=== PATIENT | male | born 1945 | race African-American/Black ===

== ENCOUNTER 2016-06-16 16:32 | Emergency (ER) | payer OTHER, MEDICARE ==
[2016-06-16] MEDS ORDERED: ASPIRIN 81 MG TABLET, CHEWABLE PO ONE (18:06)
--- NOTE | 2016-06-16 18:08 | ER Document Report ---
ED Medical Screen (RME) - General Stated Complaint: PASSED OUT Notes: She states he passed out last night, but does not remember event. says patient was in a cold sweat and felt cold. Patient has a history of hypertension and is diabetic. He states he is having some chest pain and shortness of breath. Denies nausea or vomiting. Patient complains of decreased appetite. I have greeted and performed a rapid initial assessment of this patient. A comprehensive ED assessment and evaluation of the patient, analysis of test results and completion of the medical decision making process will be conducted by additional ED providers. TRAVEL OUTSIDE OF THE [place] IN LAST 30 DAYS: No - Related Data Allergies/Adverse Reactions: No Known Allergies Allergy (Verified 06/16/16 18:04) Past Medical History - Past Medical History Cardiac Medical History: Reports: Hx Hypercholesterolemia, Hx Hypertension Pulmonary Medical History: Reports: Hx Asthma Endocrine Medical History: Reports: Hx Diabetes Mellitus Type 2 GI Medical History: Reports: Hx Gastroesophageal Reflux Disease - Immunizations Hx Diphtheria, Pertussis, Tetanus Vaccination: Yes - 2009 Physical Exam - Vital signs Vitals: Temp Pulse Resp BP Pulse Ox 98.5 F 66 20 164/71 H 97 06/16/16 17:23 06/16/16 17:23 06/16/16 17:23 06/16/16 17:23 06/16/16 17:23 - Cardiovascular Rhythm: Regular Heart sounds: Normal auscultation Course - Vital Signs Vital signs: Temp Pulse Resp BP Pulse Ox 98.5 F 66 20 164/71 H 97 06/16/16 17:23 06/16/16 17:23 06/16/16 17:23 06/16/16 17:23 06/16/16 17:23
[2016-06-16 18:32] LABS: ABSOLUTE EOSINOPHILS # (AUTO) 0.1 10^3/uL (0.0-0.6); ABSOLUTE LYMPHOCYTES (AUTO) 1.1 10^3/uL (0.5-4.7); ABSOLUTE MONOCYTES (AUTO) 0.4 10^3/uL (0.1-1.4); BASOPHILS % (AUTO) 0.6 % (0-2); EOSINOPHILS % (AUTO) 1.8 % (0-6); HEMATOCRIT 44.9 % (37.9-51.0); HEMOGLOBIN 15.3 g/dL (13.5-17.0); LYMPHOCYTES % (AUTO) 23.4 % (13-45); MEAN CORPUSCULAR HEMOGLOBIN 33.9 pg (27.0-33.4); MEAN CORPUSCULAR HGB CONC 34.1 g/dL (32.0-36.0); MEAN CORPUSCULAR VOLUME 100 fl (80-97); RED BLOOD COUNT 4.52 10^6/uL (4.35-5.55); RED CELL DISTRIBUTION WIDTH 13.6 % (11.5-14.0); SEGMENTED NEUTROPHILS % (AUTO) 65.2 % (42-78); WHITE BLOOD COUNT 4.6 10^3/uL (4.0-10.5)
[2016-06-16 18:39] LABS: PROTHROMBIN TIME 13.5 SEC (11.4-15.4)
[2016-06-16 18:54] LABS: ALANINE AMINOTRANSFERASE 50 U/L (21-72); ALBUMIN 4.8 g/dL (3.5-5.0); ALKALINE PHOSPHATASE 56 U/L (38-126); ANION GAP 14 (5-19); ASPARTATE AMINO TRANSFERASE 35 U/L (17-59); BILIRUBIN,DIRECT 0.3 mg/dL (0.0-0.4); BLOOD UREA NITROGEN 11 mg/dL (7-20); CARBON DIOXIDE 28 mmol/L (22-30); CHLORIDE 102 mmol/L (98-107); CREATINE KINASE 118 U/L (55-170); CREATININE RESULT 1.01 mg/dL (0.52-1.25); GLUCOSE 110 mg/dL (75-110); POTASSIUM 3.9 mmol/L (3.6-5.0)
[2016-06-16 19:05] LABS: CREATINE KINASE MB 0.98 ng/mL (<4.55); TROPONIN I < 0.012 ng/mL
--- NOTE | 2016-06-16 20:24 | EKG REPORT ---
SEVERITY:- ABNORMAL ECG - SINUS RHYTHM FIRST DEGREE AV BLOCK PROBABLE LEFT ATRIAL ABNORMALITY PROBABLE LVH WITH SECONDARY REPOL ABNRM ANTERIOR Q WAVES, POSSIBLY DUE TO LVH : Confirmed by: Dora Phoenix 16-Jun-2016 20:24:11
--- NOTE | 2016-06-17 00:02 | ER Document Report ---
ED Syncope and Near Syncope - General Chief Complaint: Passed Out Prior to Arrival Stated Complaint: PASSED OUT Time Seen by Provider: 06/16/16 18:04 Mode of Arrival: Ambulatory Information source: Patient TRAVEL OUTSIDE OF THE [place] IN LAST 30 DAYS: No - HPI Patient complains to provider of: Fainting Episode witnessed (by whom): Yes - spouse Single episoded occurred: 24 hours prior to my evaluation Multiple episodes (how many): 1 Symptoms prior to episode: None Position/Activity at time of episode: Sitting Quality of pain: No pain Context: Became unresponsive, Confused after event, Incontinent of urine Duration of LOC (min): 10 minutes Injury location: None Current symptoms: None/feels back to normal Similar symptoms previously: No Recently seen / treated by doctor: No Notes: Patient is a 71-year-old male who presents to the emergency room for complaints of a syncopal episode with possible seizure that occurred yesterday evening at around 10 PM, reports he was sitting in a chair watching TV when he became sweaty and passed out, he was unresponsive for approximately 10 minutes, he urinated on himself during this time and was confused for approximately 20 minutes after the episode, denies seeing any seizure activity during the episode, no history of similar symptoms previously, no seizure history, patient denies any injury prior to or during the episode as he was sitting in chair in the living room, at time of my evaluation he reports feeling 100% normal and has no complaints - Related Data Allergies/Adverse Reactions: No Known Allergies Allergy (Verified 06/16/16 18:04) Past Medical History - General Information source: Patient - Social History Smoking Status: Unknown if Ever Smoked Chew tobacco use (# tins/day): No Frequency of alcohol use: None Drug Abuse: None Family History: Reviewed & Not Pertinent Patient has suicidal ideation: No Patient has homicidal ideation: No - Past Medical History Cardiac Medical History: Reports: Hx Hypercholesterolemia, Hx Hypertension Pulmonary Medical History: Reports: Hx Asthma Endocrine Medical History: Reports: Hx Diabetes Mellitus Type 2 Renal/ Medical History: Denies: Hx Peritoneal Dialysis GI Medical History: Reports: Hx Gastroesophageal Reflux Disease - Immunizations Hx Diphtheria, Pertussis, Tetanus Vaccination: Yes - 2009 Review of Systems - Review of Systems Constitutional: No symptoms reported EENT: No symptoms reported Cardiovascular: Syncope Respiratory: No symptoms reported Gastrointestinal: No symptoms reported Genitourinary: No symptoms reported Male Genitourinary: No symptoms reported Musculoskeletal: No symptoms reported Skin: No symptoms reported Hematologic/Lymphatic: No symptoms reported Neurological/Psychological: No symptoms reported -: Yes All other systems reviewed and negative Physical Exam - Vital signs Vitals: Temp Pulse Resp BP Pulse Ox 98.5 F 66 20 164/71 H 97 06/16/16 17:23 06/16/16 17:23 06/16/16 17:23 06/16/16 17:23 06/16/16 17:23 Interpretation: Normal - General General appearance: Appears well, Alert - HEENT Head: Normocephalic, Atraumatic Eyes: Normal Pupils: PERRL - Respiratory Respiratory status: No respiratory distress Chest status: Nontender Breath sounds: Normal Chest palpation: Normal - Cardiovascular Rhythm: Regular Heart sounds: Normal auscultation Murmur: No - Abdominal Inspection: Normal Distension: No distension Bowel sounds: Normal Tenderness: Nontender Organomegaly: No organomegaly - Back Back: Normal, Nontender - Extremities General upper extremity: Normal inspection, Nontender, Normal color, Normal ROM , Normal temperature General lower extremity: Normal inspection, Nontender, Normal color, Normal ROM , Normal temperature, Normal weight bearing. No: Billie's sign - Neurological Neuro grossly intact: Yes Cognition: Normal Orientation: AAOx4 [place] Coma Scale Eye Opening: Spontaneous [place] Coma Scale Verbal: Oriented [place] Coma Scale Motor: Obeys Commands [place] Coma Scale Total: 15 Speech: Normal Motor strength normal: LUE, RUE, LLE, RLE Sensory: Normal - Psychological Associated symptoms: Normal affect, Normal mood - Skin Skin Temperature: Warm Skin Moisture: Dry Skin Color: Normal Course - Re-evaluation Re-evalutation: 06/17/16 02:53 Lab and imaging findings were discussed with patient at bedside which are relatively unremarkable, EKG is unchanged from previous EKG, I discussed my concerns with possible seizure activity that may of been cause of patient's unresponsive episode yesterday evening, I advised him to follow-up with a neurologist within the next 1-2 days, refrain from driving or other activity that may be dangerous if he is in fact having seizures or even syncopal episodes , he was advised to follow-up with his primary care provider as well, or return if symptoms worsen, patient and spouse at bedside acknowledge understanding and agreement with this plan - Vital Signs Vital signs: Temp Pulse Resp BP Pulse Ox 98.5 F 63 16 159/76 H 96 06/17/16 00:14 06/17/16 00:14 06/17/16 00:14 06/17/16 00:14 06/17/16 00:14 - Laboratory Result Diagrams: 06/16/16 18:20 06/16/16 18:20 Laboratory results interpreted by me: 06/16/16 18:20 MCV 100 H MCH 33.9 H - Diagnostic Test Radiology reviewed: Image reviewed, Reports reviewed - EKG Interpretation by Me EKG shows normal: Sinus rhythm Rate: Normal Rhythm: NSR Voltage: Consistant with LVH Heart block present: 1st Degree When compared to previous EKG there are: No significant change Discharge - Discharge Clinical Impression: Seizure Syncopal episodes Qualifiers: Syncope type: unspecified Qualified Code(s): R55 - Syncope and collapse Condition: Stable Disposition: HOME, SELF-CARE Instructions: Syncopal Episode ([facility]), Seizure, Known Epileptic ([facility]), Neurologist Additional Instructions: Follow up with your primary care provider and neurologist in one to 2 days. Return to the emergency room immediately if symptoms worsen or any additional concerns. Referrals: APRIL CRUZ MD [Primary Care Provider] - Follow up as needed
[2016-06-17 00:16] VITALS: BP 159/76
== END 2016-06-17 00:16 | disposition home or self-care (01) ==
LOC: ER 16:32
DX: R56.9 Unspecified convulsions (principal); R55 Syncope and collapse
CPT/HCPCS: 36415; 71010; 80053; 82550; 82553; 84484; 85025; 85610; 93005; 93010; 99284

== ENCOUNTER 2017-02-25 22:31 | Emergency (ER) | payer OTHER, MEDICARE ==
[2017-02-25] MEDS ORDERED: NORMAL SALINE 1000 ML 1,000 ML IV ONE (22:43)
--- NOTE | 2017-02-25 22:45 | ER Document Report ---
ED General - General Chief Complaint: Syncope Stated Complaint: POSSIBLE SYNCOPAL EPISODE Time Seen by Provider: 02/25/17 22:37 Notes: Patient is a 72-year-old male that comes emergency department by EMS for chief complaint of syncope. Reportedly patient passed out twice at home, witnessed, stated that he "was out of it for about 10 minutes" and appeared to have shaking movements. No history of seizures. Patient states he had 2 beers today. He denies headache, chest pain, abdominal pain, focal numbness or weakness, he states he just feels weak. He states he has had diarrhea for a week, it has slowed down now to about 1-2 episodes a day, nonbloody, no fevers, states he has had a decreased appetite as well. Past medical history of hypertension, type 2 diabetes, daily aspirin, takes no other blood thinners. EMS gave 500 cc bolus, blood pressure elevated from 60 systolic to 120s systolic. TRAVEL OUTSIDE OF THE [place] IN LAST 30 DAYS: No - Related Data Allergies/Adverse Reactions: No Known Allergies Allergy (Verified 06/16/16 18:04) Past Medical History - General Information source: Patient - Social History Smoking Status: Never Smoker Frequency of alcohol use: Occasional Drug Abuse: None Lives with: Family Family History: Reviewed & Not Pertinent - Past Medical History Cardiac Medical History: Reports: Hx Hypercholesterolemia, Hx Hypertension Pulmonary Medical History: Reports: Hx Asthma Endocrine Medical History: Reports: Hx Diabetes Mellitus Type 2 Renal/ Medical History: Denies: Hx Peritoneal Dialysis GI Medical History: Reports: Hx Gastroesophageal Reflux Disease - Immunizations Hx Diphtheria, Pertussis, Tetanus Vaccination: Yes - 2009 Review of Systems - Review of Systems Constitutional: No symptoms reported EENT: No symptoms reported Cardiovascular: See HPI Respiratory: No symptoms reported Gastrointestinal: No symptoms reported Genitourinary: No symptoms reported Male Genitourinary: No symptoms reported Musculoskeletal: No symptoms reported Skin: No symptoms reported Hematologic/Lymphatic: No symptoms reported Neurological/Psychological: See HPI Physical Exam - Vital signs Vitals: BP Pulse Ox 130/78 H 94 02/25/17 22:39 02/25/17 22:39 Interpretation: Normal - General General appearance: Appears well, Alert In distress: None - Smiling, alert, well-appearing - HEENT Head: Normocephalic, Atraumatic. No: Abrasions, Ecchymosis, Open wounds, [place] 's eyes, Tenderness Eyes: Normal Pupils: PERRL Mouth/Lips: Normal Mucous membranes: Normal Pharynx: Normal Neck: Normal - Respiratory Respiratory status: No respiratory distress Chest status: Nontender Breath sounds: Normal Chest palpation: Normal - Cardiovascular Rhythm: Regular Heart sounds: Normal auscultation Murmur: No - Abdominal Inspection: Normal Distension: No distension Bowel sounds: Normal Tenderness: Nontender. No: Tender Organomegaly: No organomegaly - Back Back: Normal, Nontender - Extremities General upper extremity: Normal inspection, Nontender, Normal color, Normal ROM , Normal temperature General lower extremity: Normal inspection, Nontender, Normal color, Normal ROM , Normal temperature, Normal weight bearing. No: Billie's sign - Neurological Neuro grossly intact: Yes Cognition: Normal Orientation: AAOx4 [place] Coma Scale Eye Opening: Spontaneous [place] Coma Scale Verbal: Oriented [place] Coma Scale Motor: Obeys Commands [place] Coma Scale Total: 15 Speech: Normal Cranial nerves: Normal Cerebellar coordination: Normal Motor strength normal: LUE, RUE, LLE, RLE Additional motor exam normals: Equal yard caller Sensory: Normal - Psychological Associated symptoms: Normal affect, Normal mood - Skin Skin Temperature: Warm Skin Moisture: Dry Skin Color: Normal Course - Re-evaluation Re-evalutation: EKG sinus rhythm, mild T-wave inversions laterally, slightly elevated ID interval, no significant change from prior. Chest x-ray, CAT scans unremarkable. CBC, chemistry, cardiac enzymes unremarkable. Urinalysis unremarkable. Urine drug screen shows marijuana only. Cycled troponin does not show elevation. Patient has not had any chest pain. Patient denies any bloody stools. Discussed patient with Dr. Buitrago. Patient and now tell me that patient has had syncopal episodes going on for months now. They state that they have been referred to cardiology and have one coming up soon. They are requesting to leave. Discussed results and possibilities with patient. Discussed this with family as well. Patient is to follow-up closely with cardiology. Discussed return precautions including head injury, vomiting, chest pain, shortness of breath, dizziness. Patient and family state understanding and agreement. - Vital Signs Vital signs: Temp Pulse Resp BP Pulse Ox 12 142/65 H 96 02/26/17 01:56 02/26/17 01:56 02/26/17 01:56 - Laboratory Result Diagrams: 02/25/17 22:50 02/25/17 22:50 Laboratory results interpreted by me: 02/25/17 02/25/17 22:50 22:50 RBC 3.61 L Hgb 12.4 L Hct 36.0 L MCV 100 H MCH 34.3 H Est GFR (Non-Af Amer) 57 L Glucose 123 H Discharge - Discharge Clinical Impression: Syncopal episodes Qualifiers: Syncope type: unspecified Qualified Code(s): R55 - Syncope and collapse Condition: Stable Disposition: HOME, SELF-CARE Additional Instructions: Your workup does not show any acute abnormalities. Please follow-up with cardiology as planned for syncopal episodes. Return to the emergency department for any concerning symptoms including fever, chest pain, difficulty breathing, or any other concerning symptoms. Referrals: APRIL CRUZ MD [Primary Care Provider] - Follow up as needed
[2017-02-25 23:08] LABS: ABSOLUTE EOSINOPHILS # (AUTO) 0.1 10^3/uL (0.0-0.6); ABSOLUTE LYMPHOCYTES (AUTO) 1.3 10^3/uL (0.5-4.7); ABSOLUTE MONOCYTES (AUTO) 0.4 10^3/uL (0.1-1.4); ABSOLUTE NEUT (AUTO) 2.4 10^3/uL (1.7-8.2); BASOPHILS % (AUTO) 0.7 % (0-2); EOSINOPHILS % (AUTO) 1.6 % (0-6); HEMOGLOBIN 12.4 g/dL (13.5-17.0); HGB HCT DIFFERENCE 1.2; LYMPHOCYTES % (AUTO) 30.7 % (13-45); MEAN CORPUSCULAR HEMOGLOBIN 34.3 pg (27.0-33.4); MEAN CORPUSCULAR HGB CONC 34.5 g/dL (32.0-36.0); MEAN CORPUSCULAR VOLUME 100 fl (80-97); MONOCYTES % (AUTO) 9.3 % (3-13); RED BLOOD COUNT 3.61 10^6/uL (4.35-5.55); RED CELL DISTRIBUTION WIDTH 13.1 % (11.5-14.0); SEGMENTED NEUTROPHILS % (AUTO) 57.7 % (42-78); WHITE BLOOD COUNT 4.1 10^3/uL (4.0-10.5)
--- NOTE | 2017-02-25 23:31 | RADIOLOGY REPORT (SQ) ---
EXAM DESCRIPTION: CHEST SINGLE VIEW CLINICAL HISTORY: 72 years, Male, hypotension, syncope COMPARISON: 06/16/2016. NUMBER OF VIEWS: 1. TECHNIQUE: Frontal. LIMITATIONS: None. FINDINGS: Small obscuration-fusion right costophrenic angle. Small atelectasis or scar right midlung field. Normal cardiac silhouette size. Atherosclerosis. Small deformity of the right seventh and eighth posterior ribs. Stable. IMPRESSION: No acute cardiopulmonary findings. 2010 [employer]- All Rights Reserved
--- NOTE | 2017-02-25 23:39 | RADIOLOGY REPORT (SQ) ---
EXAM DESCRIPTION: CT CERVICAL SPINE WITHOUT CLINICAL HISTORY: 72 years Male, syncope, ETOH COMPARISON: None. TECHNIQUE: This exam was performed according to our departmental dose-optimization program, which includes automated exposure control, adjustment of the mA and/or kV according to patient size and/or use of iterative reconstruction technique. FINDINGS: No acute findings. No evidence of fracture or subluxation. Normal alignment and curvature. Mild disc desiccation and spondylosis between the C3 and C6 levels. Mild/moderate bilateral C5, C6, and C7 foraminal stenoses, right more than left. Ectatic thoracic aorta up to 3.5 cm in diameter partially imaged. 3.9 cm bulla of the left lung apex. IMPRESSION: No acute findings.
--- NOTE | 2017-02-25 23:42 | RADIOLOGY REPORT (SQ) ---
EXAM DESCRIPTION: CT HEAD WITHOUT CLINICAL HISTORY: 72 years Male, syncope, ETOH, seizure like symptoms COMPARISON: None. TECHNIQUE: This exam was performed according to our departmental dose-optimization program, which includes automated exposure control, adjustment of the mA and/or kV according to patient size and/or use of iterative reconstruction technique. FINDINGS: Mild volume loss, no evidence of mass, mass effect, or midline shift, mild white matter microangiopathy, no hemorrhage or infarct. Atherosclerosis. Wire fixation and partially edentulous maxilla. Else, unremarkable extra-axial structures. IMPRESSION: No acute findings.
[2017-02-25 23:51] LABS: ALANINE AMINOTRANSFERASE 26 U/L (21-72); ALBUMIN 4.1 g/dL (3.5-5.0); ALKALINE PHOSPHATASE 43 U/L (38-126); ANION GAP 12 (5-19); ASPARTATE AMINO TRANSFERASE 18 U/L (17-59); BILIRUBIN,DIRECT 0.4 mg/dL (0.0-0.4); BILIRUBIN,TOTAL 0.5 mg/dL (0.2-1.3); BLOOD UREA NITROGEN 13 mg/dL (7-20); CALCIUM 9.6 mg/dL (8.4-10.2); CARBON DIOXIDE 26 mmol/L (22-30); CHLORIDE 101 mmol/L (98-107); CREATINE KINASE 94 U/L (55-170); CREATININE RESULT 1.24 mg/dL (0.52-1.25); GLUCOSE 123 mg/dL (75-110); MAGNESIUM 1.9 mg/dL (1.6-2.3); POTASSIUM 3.7 mmol/L (3.6-5.0); TOTAL PROTEIN 6.6 g/dL (6.3-8.2)
[2017-02-25 23:57] LABS: ALCOHOL < 10 mg/dL (NONE DETECTED)
[2017-02-26 00:54] LABS: APPEARANCE,URINE CLEAR; BILIRUBIN,URINE NEGATIVE (NEGATIVE); GLUCOSE, URINE NEGATIVE (NEGATIVE); KETONES,URINE NEGATIVE (NEGATIVE); LEUKOCYTE ESTERASE,URINE NEGATIVE (NEGATIVE); NITRITE,URINE NEGATIVE (NEGATIVE); PROTEIN,URINE NEGATIVE (NEGATIVE); URINE SPECIFIC GRAVITY 1.017; UROBILINOGEN,URINE NEGATIVE mg/dL (<2.0)
[2017-02-26 01:03] LABS: URINE BARBITURATES SCREEN NEGATIVE; URINE METHADONE SCREEN NEGATIVE; URINE OPIATES LOW NEGATIVE; URINE PHENCYCLIDINE SCREEN NEGATIVE
[2017-02-26 01:27] VITALS: BP 142/65
--- NOTE | 2017-02-26 04:45 | EKG REPORT ---
SEVERITY:- ABNORMAL ECG - SINUS RHYTHM FIRST DEGREE AV BLOCK CONSIDER ANTEROSEPTAL INFARCT NONSPECIFIC T ABNORMALITIES, LATERAL LEADS : Confirmed by: Dora Phoenix 26-Feb-2017 04:15:43
== END 2017-02-26 02:00 | disposition home or self-care (01) ==
LOC: ER 22:31
DX: R55 Syncope and collapse (principal); R53.1 Weakness; R19.7 Diarrhea, unspecified
CPT/HCPCS: 93005; 99285; 96360; 36415; 80307 ×2; 82550; 83735; 85025; 80053; 81001; 84484; 71010; 70450; 72125; 93010; J7030

== ENCOUNTER 2017-05-04 20:12 | Emergency (ER) | payer OTHER, MEDICARE ==
[2017-05-04] MEDS ORDERED: NORMAL SALINE 1000 ML 1,000 ML IV ONE (20:23)
[2017-05-04 20:42] LABS: ABSOLUTE EOSINOPHILS # (AUTO) 0.1 10^3/uL (0.0-0.6); ABSOLUTE LYMPHOCYTES (AUTO) 0.9 10^3/uL (0.5-4.7); ABSOLUTE MONOCYTES (AUTO) 0.3 10^3/uL (0.1-1.4); ABSOLUTE NEUT (AUTO) 1.8 10^3/uL (1.7-8.2); BASOPHILS % (AUTO) 0.7 % (0-2); HEMATOCRIT 40.2 % (37.9-51.0); HEMOGLOBIN 13.5 g/dL (13.5-17.0); MEAN CORPUSCULAR HEMOGLOBIN 33.1 pg (27.0-33.4); MEAN CORPUSCULAR HGB CONC 33.5 g/dL (32.0-36.0); MEAN CORPUSCULAR VOLUME 99 fl (80-97); MONOCYTES % (AUTO) 9.1 % (3-13); PLATELET COUNT 173 10^3/uL (150-450); RED BLOOD COUNT 4.06 10^6/uL (4.35-5.55); RED CELL DISTRIBUTION WIDTH 12.8 % (11.5-14.0); SEGMENTED NEUTROPHILS % (AUTO) 58.2 % (42-78); TOTAL CELLS COUNTED % (AUTO) 100 %
--- NOTE | 2017-05-04 20:49 | RADIOLOGY REPORT (SQ) ---
EXAM DESCRIPTION: CHEST SINGLE VIEW COMPLETED DATE/TIME: 05/04/2017 8:37 pm REASON FOR STUDY: syncope COMPARISON: 02/25/2017 EXAM PARAMETERS: NUMBER OF VIEWS: One view. TECHNIQUE: Single frontal radiographic view of the chest acquired. RADIATION DOSE: NA LIMITATIONS: None. FINDINGS: LUNGS AND PLEURA: No opacities, masses or pneumothorax. No pleural effusion. Chronic scar ring in the right lung. MEDIASTINUM AND HILAR STRUCTURES: No masses. Contour normal. HEART AND VASCULAR STRUCTURES: Heart normal in size. Normal vasculature. BONES: No acute findings. HARDWARE: None in the chest. OTHER: No other significant finding. IMPRESSION: NO ACUTE RADIOGRAPHIC FINDING IN THE CHEST. TECHNICAL DOCUMENTATION: JOB ID: [id number] [employer]- All Rights Reserved
[2017-05-04 21:06] LABS: ALANINE AMINOTRANSFERASE 23 U/L (21-72); ALBUMIN 3.9 g/dL (3.5-5.0); ALCOHOL 23 mg/dL (NONE DETECTED); ALKALINE PHOSPHATASE 41 U/L (38-126); ANION GAP 9 (5-19); ASPARTATE AMINO TRANSFERASE 24 U/L (17-59); BILIRUBIN,DIRECT 0.4 mg/dL (0.0-0.4); BILIRUBIN,TOTAL 0.6 mg/dL (0.2-1.3); BLOOD UREA NITROGEN 13 mg/dL (7-20); CALCIUM 8.9 mg/dL (8.4-10.2); CARBON DIOXIDE 26 mmol/L (22-30); CHLORIDE 104 mmol/L (98-107); CREATINE KINASE 64 U/L (55-170); GLUCOSE 111 mg/dL (75-110); POTASSIUM 3.9 mmol/L (3.6-5.0); SODIUM 138.9 mmol/L (137-145); TOTAL PROTEIN 6.7 g/dL (6.3-8.2)
[2017-05-04 21:11] LABS: VENOUS BLOOD HCO3 28.1 mmol/L (20-32); VENOUS BLOOD PCO2 55.1 mmHg (35-63); VENOUS BLOOD PH 7.33 (7.30-7.42)
[2017-05-04 21:17] LABS: NT PRO BNP 136 pg/mL (5-900)
[2017-05-04 21:28] LABS: TROPONIN I < 0.012 ng/mL
[2017-05-04 22:26] LABS: URINE AMPHETAMINES SCREEN NEGATIVE; URINE BARBITURATES SCREEN NEGATIVE; URINE BENZODIAZEPINES SCREEN NEGATIVE; URINE COCAINE SCREEN NEGATIVE; URINE MARIJUANA (THC) SCREEN UNCONFIRMED POSITIVE; URINE METHADONE SCREEN NEGATIVE; URINE PHENCYCLIDINE SCREEN NEGATIVE
--- NOTE | 2017-05-04 22:43 | ER Document Report ---
ED General - General Chief Complaint: Passed Out Prior to Arrival Stated Complaint: POSSIBLE SYNCOPE Time Seen by Provider: 05/04/17 20:20 Notes: The patient is a 72-year-old male, past medical history chronic marijuana use, prior episodes of syncope, presents after a brief syncopal episode where his found him on the ground and not responding. When EMS arrived, he was back to baseline and he has no complaints at this time. He has had multiple episodes over the past year and has an appointment with the fire adjust[facility] the [facility] in 2 weeks for further evaluation and treatment, including a Holter monitor. Patient has already seen the neurologist, Dr. Zhong, who said that these episodes are not seizures. Patient denies chest pain, shortness of breath, nausea, vomiting, head injury, numbness, tingling, abdominal pain, back pain, fevers or chills. TRAVEL OUTSIDE OF THE [place] IN LAST 30 DAYS: No - Related Data Allergies/Adverse Reactions: No Known Allergies Allergy (Verified 06/16/16 18:04) Past Medical History - General Information source: Patient - Social History Smoking Status: Current Every Day Smoker Frequency of alcohol use: Occasional Drug Abuse: Marijuana Family History: Reviewed & Not Pertinent - Past Medical History Cardiac Medical History: Reports: Hx Hypercholesterolemia, Hx Hypertension Pulmonary Medical History: Reports: Hx Asthma Endocrine Medical History: Reports: Hx Diabetes Mellitus Type 2 Renal/ Medical History: Denies: Hx Peritoneal Dialysis GI Medical History: Reports: Hx Gastroesophageal Reflux Disease - Immunizations Hx Diphtheria, Pertussis, Tetanus Vaccination: Yes - 2009 Review of Systems - Review of Systems Notes: REVIEW OF SYSTEMS: CONSTITUTIONAL: -fevers, -chills EENT: -eye pain, -difficulty swallowing, -nasal congestion CARDIOVASCULAR: -chest pain, +syncope. RESPIRATORY: -cough, -SOB GASTROINTESTINAL: -abdominal pain, -nausea, -vomiting, -diarrhea GENITOURINARY: -dysuria, -hematuria MUSCULOSKELETAL: -back pain, -neck pain SKIN: -rash or skin lesions. HEMATOLOGIC: -easy bruising or bleeding. LYMPHATIC: -swollen, enlarged glands. NEUROLOGICAL: -altered mental status or loss of consciousness, -headache, - neurologic symptoms PSYCHIATRIC: -anxiety, -depression. ALL OTHER SYSTEMS REVIEWED AND NEGATIVE. Physical Exam - Vital signs Vitals: Temp 97.7 F 05/04/17 20:21 - Notes Notes: PHYSICAL EXAMINATION: GENERAL: Well-appearing, well-nourished and in no acute distress. HEAD: Atraumatic, normocephalic. EYES: Pupils equal round and reactive to light, extraocular movements intact, sclera anicteric, conjunctiva are normal. ENT: nares patent, oropharynx clear without exudates. Moist mucous membranes. NECK: Normal range of motion, supple without lymphadenopathy LUNGS: Breath sounds clear to auscultation bilaterally and equal. No wheezes rales or rhonchi. HEART: Regular rhythm without murmurs, bradycardia ABDOMEN: Soft, nontender, normoactive bowel sounds. No guarding, no rebound. No masses appreciated. EXTREMITIES: Normal range of motion, no pitting or edema. No cyanosis. NEUROLOGICAL: Cranial nerves grossly intact. Normal speech, normal gait. Normal sensory and motor exams. PSYCH: Normal mood, normal affect. SKIN: Warm, Dry, normal turgor, no rashes or lesions noted. Course - Re-evaluation Re-evalutation: Patient appears very well and his vital signs are normal. While on the cardiac exercise physiologist, he has no arrhythmias or other concerning findings. Blood work is unremarkable. He has had these episodes multiple times and has an appointment with the [place] fire adjuster in 2 weeks for a monitor and further evaluation of these episodes. He has no complaints. Offered patient admission, but he appears well and would like to go home with outpatient follow-up. Given very strict return precautions and he understands. - Vital Signs Vital signs: Temp Pulse Resp BP Pulse Ox 97.7 F 17 132/75 H 100 05/04/17 20:21 05/04/17 23:00 05/04/17 23:00 05/04/17 23:00 - Laboratory Result Diagrams: 05/04/17 20:32 05/04/17 20:32 Laboratory results interpreted by me: 05/04/17 05/04/17 05/04/17 20:32 20:32 20:45 WBC 3.0 L RBC 4.06 L MCV 99 H Glucose 111 H Lactic Acid 2.2 H - Diagnostic Test Radiology reviewed: Image reviewed, Reports reviewed Radiology results interpreted by me: CXR: NAD - EKG Interpretation by Me EKG shows normal: Sinus rhythm, QRS Complexes Rate: Bradycardia When compared to previous EKG there are: No significant change Additional EKG results interpreted by me: First degree AV block. Old V4-V6 T-wave inversions. Discharge - Discharge Clinical Impression: Syncope Qualifiers: Syncope type: unspecified Qualified Code(s): R55 - Syncope and collapse Condition: Stable Disposition: HOME, SELF-CARE Additional Instructions: Keep your appointment with the fire adjuster [place] the [place] for further evaluation of these frequent episodes. Return immediately to the ER if you notice any worsening symptoms or any other concerns. SYNCOPAL EPISODE: Syncope (fainting or near-fainting) can occur from many different health problems. Or it can be a simple fainting spell requiring no treatment. It is safe for you to go home, but further evaluation will likely be necessary. Your work-up may include tests for internal bleeding, heart disease, medication problems, or near-strokes. Tests are not always required, however, depending on the nature of your problem. The warning signs of an impending faint include: dizziness, lightheadedness , nausea, hot flashes, tingling, and weakness. If this happens, lay down and put your feet up, then wait until all of these symptoms have passed before standing up again. If these episodes become recurrent, or if you develop chest pain, heart palpitations, mental confusion, blurred vision, or headache, then you should call the physician, or go to the emergency room. NEAR SYNCOPAL EPISODE: Syncope or near syncope (fainting or near-fainting) can occur from many different health problems. Or it can be a simple fainting spell requiring no treatment. It is safe for you to go home, but further evaluation will likely be necessary. Your work-up may include tests for internal bleeding, heart disease, medication problems, or near-strokes. Tests are not always required, however, depending on the nature of your problem. The warning signs of an impending faint include: dizziness, lightheadedness , nausea, hot flashes, tingling, and weakness. If this happens, lay down and put your feet up, then wait until all of these symptoms have passed before standing up again. If these episodes become recurrent, or if you develop chest pain, heart palpitations, mental confusion, blurred vision, or headache, then you should call the physician, or go to the emergency room. NORMAL EXAM AND WORKUP: At this time, your examination and workup show no significant abnormality. No significant abnormal physical findings were noted. All laboratory, EKG, and imaging (x-ray, CT scans, ultrasound) studies that were ordered show no significant abnormality. Although your examination and all studies that were ordered showed no significant abnormal finding, there are no examinations and no studies that are 100% accurate. There is always the possibility that some abnormality could exist and not be detected with physical examination or within the limits and capabilities of laboratory and other studies. You should return or follow up as you were instructed on your visit today for further evaluation if your symptoms do not resolve. FOLLOW-UP CARE: If you have been referred to a physician for follow-up care, call the physician s office for an appointment as you were instructed or within the next two days. If you experience worsening or a significant change in your symptoms, notify the physician immediately or return to the Emergency Department at any time for re-evaluation. Referrals: APRIL CRUZ MD [Primary Care Provider] - Follow up as needed PONCHO RAMIREZ MD [ACTIVE STAFF] - Follow up as needed
[2017-05-04 23:32] VITALS: BP 132/75
--- NOTE | 2017-05-05 09:31 | EKG REPORT ---
SEVERITY:- ABNORMAL ECG - SINUS RHYTHM FIRST DEGREE AV BLOCK CONSIDER ANTEROSEPTAL INFARCT NONSPECIFIC T ABNORMALITIES, LATERAL LEADS : Confirmed by: Dora Phoenix 05-May-2017 09:30:28
== END 2017-05-04 23:26 | disposition home or self-care (01) ==
LOC: ER 20:12
DX: R55 Syncope and collapse (principal); F12.10 Cannabis abuse, uncomplicated; F17.200 Nicotine dependence, unspecified, uncomplicated; I44.0 Atrioventricular block, first degree; R00.1 Bradycardia, unspecified; I10 Essential (primary) hypertension; J45.909 Unspecified asthma, uncomplicated; E11.9 Type 2 diabetes mellitus without complications
CPT/HCPCS: 93005; 99284; 96360; 36415; 80307 ×2; 82550; 85025; 80053; 84484; 82803; 83605; 83880; 71045; 93010; J7030

== ENCOUNTER 2017-08-05 17:01 | Emergency (ER) | payer OTHER, MEDICARE ==
[2017-08-05 17:14] VITALS: BP 169/73
[2017-08-05] MEDS ORDERED: IPRATROPIUM/ALBUTEROL 0.5-2.5 MG/3 ML AMPUL NEB ONE (17:24)
[2017-08-05] MEDS ORDERED: DOXYCYCLINE HYCLATE 100 MG TABLET PO ONE (17:24)
--- NOTE | 2017-08-05 17:28 | ER Document Report ---
ED General - General Chief Complaint: Nonproductive Cough Stated Complaint: COUGH/BACK PAIN Time Seen by Provider: 08/05/17 17:17 Mode of Arrival: Ambulatory Information source: Patient Notes: 72-year-old male with history of hypertension, asthma presents with complaint of cough, nasal congestion, chest tightness that has been ongoing for approximately 1 week. Patient is here with his that has similar symptoms. He denies chest pain, shortness of breath, abdominal pain, leg swelling. He has tried [id number] cold medication and Claritin without relief. He has had a low-grade temp at home. TRAVEL OUTSIDE OF THE [place] IN LAST 30 DAYS: No - HPI Onset: Last week Onset/Duration: Gradual Quality of pain: No pain Associated symptoms: Allergy/hay fever, Nonproductive cough, Fever, Headache, Sinus pain/drainage. denies: Chest pain, Hurts to breath, Leg swelling Exacerbated by: Denies Relieved by: Denies Similar symptoms previously: Yes Recently seen / treated by doctor: No - Related Data Allergies/Adverse Reactions: No Known Allergies Allergy (Verified 08/05/17 17:09) Past Medical History - General Information source: Patient, Parent - Social History Smoking Status: Never Smoker Chew tobacco use (# tins/day): No Frequency of alcohol use: None Drug Abuse: None Lives with: Spouse/Significant other Family History: Reviewed & Not Pertinent Patient has suicidal ideation: No Patient has homicidal ideation: No - Past Medical History Cardiac Medical History: Reports: Hx Hypercholesterolemia, Hx Hypertension Pulmonary Medical History: Reports: Hx Asthma Endocrine Medical History: Reports: Hx Diabetes Mellitus Type 2 Renal/ Medical History: Denies: Hx Peritoneal Dialysis GI Medical History: Reports: Hx Gastroesophageal Reflux Disease - Immunizations Hx Diphtheria, Pertussis, Tetanus Vaccination: Yes - 2009 Review of Systems - Review of Systems Notes: REVIEW OF SYSTEMS: CONSTITUTIONAL : Denies fever, chills, or sweats. Denies recent illness. Denies weight loss, recent hospitalizations. EENT: Patient complaining of nasal congestion, sore throat. CARDIOVASCULAR: Denies chest pain. Denies palpitations or racing or irregular heart beat. Denies lower extremity edema. RESPIRATORY: Patient complaining of nonproductive cough, chest tightness GASTROINTESTINAL: Denies abdominal pain or distention. Denies nausea, vomiting , or diarrhea. Denies blood in vomitus, stools, or per rectum. Denies black, tarry stools. Denies constipation. GENITOURINARY: Denies difficulty urinating, painful urination, burning, frequency, blood in urine, or vaginal discharge. MUSCULOSKELETAL: Denies back or neck pain or stiffness. Denies joint pain or swelling. SKIN: Denies rash, lesions or sores. HEMATOLOGIC : Denies easy bruising or bleeding. LYMPHATIC: Denies swollen, enlarged glands. NEUROLOGICAL: Denies confusion or altered mental status. Denies passing out or loss of consciousness. Denies dizziness or lightheadedness. Denies headache. Denies weakness or paralysis or loss of use of either side. Denies problems with gait or speech. Denies sensory loss, numbness, or tingling. Denies seizures. PSYCHIATRIC: Denies anxiety or stress. Denies depression, suicidal ideation, or homicidal ideation. Physical Exam - Vital signs Vitals: Temp Pulse Resp BP Pulse Ox 100.2 F 67 20 169/73 H 96 08/05/17 17:12 08/05/17 17:12 08/05/17 17:12 08/05/17 17:12 08/05/17 17:12 - Notes Notes: PHYSICAL EXAMINATION: GENERAL: Well-appearing, well-nourished and in no acute distress. HEAD: Atraumatic, normocephalic. EYES: Pupils equal round and reactive to light, extraocular movements intact, sclera anicteric, conjunctiva are normal. ENT: Nares patent, oropharynx clear without exudates. Moist mucous membranes. NECK: Normal range of motion, supple without lymphadenopathy LUNGS: Diminished breath sounds in the right and left lower lung field. No wheezes rales or rhonchi. HEART: Regular rate and rhythm without murmurs ABDOMEN: Soft, nontender, nondistended abdomen. No guarding, no rebound. No masses appreciated. Musculoskeletal: Normal range of motion, no pitting or edema. No cyanosis. NEUROLOGICAL: Cranial nerves grossly intact. Normal speech, normal gait. Normal sensory, motor exams PSYCH: Normal mood, normal affect. SKIN: Warm, Dry, normal turgor, no rashes or lesions noted. Course - Re-evaluation Re-evalutation: 08/05/17 17:32 72-year-old male with history of hypertension, asthma presents with complaint of cough, nasal congestion, chest tightness that has been ongoing for approximately 1 week. Patient is here with his that has similar symptoms. He denies chest pain, shortness of breath, abdominal pain, leg swelling. He has tried [id number] cold medication and Claritin without relief. He has had a low-grade temp at home. On arrival vitals were reviewed. Patient is afebrile, hypertensive but not hypoxic. He is in no acute respiratory distress. He does not appear toxic or dehydrated. Exam was significant for diminished breath sounds bilaterally which greatly improved after his breathing treatment. Patient also reports that his chest tightness has also improved. Patient was administered doxycycline in the department and an albuterol MDI was administered. He will be discharged home with prescriptions for doxycycline, Robitussin and Claritin. Patient provided the opportunity to ask questions, and express concerns. Discharge instructions discussed. Patient is agreeable with discharge home. Return indications explained and discussed with the patient who displays understanding. Patient encouraged to return to the emergency department immediately with any concerns. 08/05/17 17:44 - Vital Signs Vital signs: Temp Pulse Resp BP Pulse Ox 100.2 F 67 20 169/73 H 96 08/05/17 17:12 08/05/17 17:12 08/05/17 17:12 08/05/17 17:12 08/05/17 17:12 Discharge - Discharge Clinical Impression: Cough, Nasal congestion URI (upper respiratory infection) Qualifiers: URI type: unspecified URI Qualified Code(s): J06.9 - Acute upper respiratory infection, unspecified Condition: Good Disposition: HOME, SELF-CARE Instructions: Acetaminophen, Fever ([facility]), Upper Respiratory Illness ([facility]), Viral Syndrome ([facility]) Additional Instructions: Follow up with your physician tomorrow for further care or return to the ED IMMEDIATELY if symptoms worsen or new concerns occur. If you cannot afford to follow up with your primary care physician a list of low cost clinics have been provided at the end of your discharge papers as well. Prescriptions: Guaifenesin/Codeine Phos [Robitussin-AC Syrup 59 ml] 5 ml PO QHS PRN #50 ml PRN Reason: Cough RX: Doxycycline Hyclate 100 mg PO BID #14 capsule Loratadine [Claritin 10 mg Tablet] 10 mg PO DAILY #30 tablet Forms: Elevated Blood Pressure
[2017-08-05] MEDS ORDERED: ALBUTEROL SULFATE HFA (90 MCG/PUFF) 8 GM MDI (1 MDI/ER DISP) IH SCH (17:45)
== END 2017-08-05 18:02 | disposition home or self-care (01) ==
LOC: ER 17:01
DX: J06.9 Acute upper respiratory infection, unspecified (principal); R05 Cough; R09.81 Nasal congestion; R07.89 Other chest pain; I10 Essential (primary) hypertension; J45.909 Unspecified asthma, uncomplicated; R50.9 Fever, unspecified; R51 Headache; J34.89 Other specified disorders of nose and nasal sinuses; E11.9 Type 2 diabetes mellitus without complications; J02.9 Acute pharyngitis, unspecified
CPT/HCPCS: 94640; 99283; J3490; J7620

== ENCOUNTER 2017-12-19 21:37 | Emergency (ER) | payer OTHER, MEDICARE ==
--- NOTE | 2017-12-19 23:27 | ER Document Report ---
ED Medical Screen (RME) - General Chief Complaint: Syncope Stated Complaint: DIZZINESS Time Seen by Provider: 12/19/17 23:24 Mode of Arrival: Medic Information source: Patient Notes: Patient is a 72-year-old male who presents with chief complaint of syncope. Patient reports that he was at home prior to arrival, had a sudden onset of dizziness and then passed out and hit the carpeted surface. Patient reports over the last several weeks he has been having dizzy spells and feelings of weakness. Patient denies ever having these symptoms previous to this. Patient reports that he has a medical history of diabetes, hypertension and hyperlipidemia. Patient currently has no complaints. Denies chest pain, shortness of breath or any headache. Exam: Patient alert, oriented and in no acute acute distress. Heart sounds S1-S2 present with no murmur noted. Lung sounds clear to auscultation bilaterally. I have greeted and performed a rapid initial assessment of this patient. A comprehensive ED assessment and evaluation of the patient, analysis of test results and completion of the medical decision making process will be conducted by additional ED providers. Dictation of this chart was performed using voice recognition software; therefore, there may be some unintended grammatical errors. TRAVEL OUTSIDE OF THE [place] IN LAST 30 DAYS: No - Related Data Allergies/Adverse Reactions: No Known Allergies Allergy (Verified 12/19/17 21:42) Past Medical History - Past Medical History Cardiac Medical History: Reports: Hx Hypercholesterolemia, Hx Hypertension Pulmonary Medical History: Reports: Hx Asthma Endocrine Medical History: Reports: Hx Diabetes Mellitus Type 2 Renal/ Medical History: Denies: Hx Peritoneal Dialysis GI Medical History: Reports: Hx Gastroesophageal Reflux Disease - Immunizations Hx Diphtheria, Pertussis, Tetanus Vaccination: Yes - 2009 Physical Exam - Vital signs Vitals: Temp Pulse Resp BP Pulse Ox 97.9 F 51 L 18 113/58 L 95 12/19/17 21:44 12/19/17 21:44 12/19/17 21:44 12/19/17 21:44 12/19/17 21:44 Course - Vital Signs Vital signs: Temp Pulse Resp BP Pulse Ox 97.9 F 51 L 18 113/58 L 95 12/19/17 21:44 12/19/17 21:44 12/19/17 21:44 12/19/17 21:44 12/19/17 21:44 Doctor's Discharge - Discharge Referrals: APRIL CRUZ MD [Primary Care Provider] - Follow up as needed
[2017-12-20 00:09] LABS: ABSOLUTE EOSINOPHILS # (AUTO) 0.1 10^3/uL (0.0-0.6); ABSOLUTE LYMPHOCYTES (AUTO) 0.8 10^3/uL (0.5-4.7); ABSOLUTE MONOCYTES (AUTO) 0.4 10^3/uL (0.1-1.4); BASOPHILS % (AUTO) 0.7 % (0-2); EOSINOPHILS % (AUTO) 1.8 % (0-6); HEMATOCRIT 42.5 % (37.9-51.0); HEMOGLOBIN 14.4 g/dL (13.5-17.0); MEAN CORPUSCULAR HEMOGLOBIN 32.9 pg (27.0-33.4); MEAN CORPUSCULAR HGB CONC 33.9 g/dL (32.0-36.0); MEAN CORPUSCULAR VOLUME 97 fl (80-97); MONOCYTES % (AUTO) 8.5 % (3-13); PLATELET COUNT 211 10^3/uL (150-450); RED BLOOD COUNT 4.37 10^6/uL (4.35-5.55); RED CELL DISTRIBUTION WIDTH 12.6 % (11.5-14.0); TOTAL CELLS COUNTED % (AUTO) 100 %; WHITE BLOOD COUNT 4.3 10^3/uL (4.0-10.5)
[2017-12-20 00:27] LABS: ALANINE AMINOTRANSFERASE 27 U/L (21-72); ALBUMIN 4.5 g/dL (3.5-5.0); ALKALINE PHOSPHATASE 65 U/L (38-126); ANION GAP 10 (5-19); ASPARTATE AMINO TRANSFERASE 20 U/L (17-59); BILIRUBIN,DIRECT 0.3 mg/dL (0.0-0.4); BILIRUBIN,TOTAL 0.8 mg/dL (0.2-1.3); BLOOD UREA NITROGEN 13 mg/dL (7-20); CALCIUM 9.8 mg/dL (8.4-10.2); CARBON DIOXIDE 29 mmol/L (22-30); CHLORIDE 100 mmol/L (98-107); CREATINE KINASE 97 U/L (55-170); GLUCOSE 85 mg/dL (75-110); POTASSIUM 4.6 mmol/L (3.6-5.0); SODIUM 138.8 mmol/L (137-145); TOTAL PROTEIN 7.7 g/dL (6.3-8.2)
[2017-12-20 00:38] LABS: CREATINE KINASE MB 1.06 ng/mL (<4.55)
[2017-12-20 00:39] LABS: TROPONIN I < 0.012 ng/mL
--- NOTE | 2017-12-20 02:30 | ER Document Report ---
ED General - General Chief Complaint: Syncope Stated Complaint: DIZZINESS Time Seen by Provider: 12/19/17 23:24 Mode of Arrival: Medic Notes: Patient is a 72-year-old male with past medical history of hypertension, hyper lipidemia, who presents after syncopal episode. Patient states that he was lying in his bed, watching a football game. He states that he went from a lying to standing position quite abruptly, became lightheaded and then lost consciousness landing on a carpeted surface. He denies sustaining any injuries during the syncopal episode. He currently denies any symptoms of any kind. He denies any chest pain or shortness of breath either preceding or after the episode of syncope. He has had a syncopal episode in the past similar to this. He has not seen his general doctor regarding today's concerns. He has not noted that he seemed to improve or worsen his symptoms. TRAVEL OUTSIDE OF THE [place] IN LAST 30 DAYS: No - Related Data Allergies/Adverse Reactions: No Known Allergies Allergy (Verified 12/20/17 02:34) Past Medical History - General Information source: Patient - Social History Smoking Status: Never Smoker Frequency of alcohol use: Occasional Drug Abuse: None Family History: Reviewed & Not Pertinent - Past Medical History Cardiac Medical History: Reports: Hx Hypercholesterolemia, Hx Hypertension Pulmonary Medical History: Reports: Hx Asthma Endocrine Medical History: Reports: Hx Diabetes Mellitus Type 2 Renal/ Medical History: Denies: Hx Peritoneal Dialysis GI Medical History: Reports: Hx Gastroesophageal Reflux Disease - Immunizations Hx Diphtheria, Pertussis, Tetanus Vaccination: Yes - 2009 Review of Systems - Review of Systems Notes: Constitutional: Negative for fever. HENT: Negative for sore throat. Eyes: Negative for visual changes. Cardiovascular: Negative for chest pain. Respiratory: Negative for shortness of breath. Gastrointestinal: Negative for abdominal pain, vomiting or diarrhea. Genitourinary: Negative for dysuria. Musculoskeletal: Negative for back pain. Skin: Negative for rash. Neurological: Negative for headaches, weakness or numbness. 10 point ROS negative except as marked above and in HPI. Physical Exam - Vital signs Vitals: Temp Pulse Resp BP Pulse Ox 97.9 F 51 L 18 113/58 L 95 12/19/17 21:44 12/19/17 21:44 12/19/17 21:44 12/19/17 21:44 12/19/17 21:44 Interpretation: Bradycardic Notes: PHYSICAL EXAMINATION: GENERAL: Well-appearing, well-nourished and in no acute distress. HEAD: Atraumatic, normocephalic. EYES: Pupils equal round and reactive to light, extraocular movements intact, sclera anicteric, conjunctiva are normal. ENT: nares patent, oropharynx clear without exudates. Moist mucous membranes. NECK: Normal range of motion, supple without lymphadenopathy LUNGS: Breath sounds clear to auscultation bilaterally and equal. No wheezes rales or rhonchi. HEART: Regular bradycardia without murmurs ABDOMEN: Soft, nontender, normoactive bowel sounds. No guarding, no rebound. No masses appreciated. EXTREMITIES: Normal range of motion, no pitting or edema. No cyanosis. NEUROLOGICAL: No focal neurological deficits. Moves all extremities spontaneously and on command. PSYCH: Normal mood, normal affect. SKIN: Warm, Dry, normal turgor, no rashes or lesions noted. Course - Re-evaluation Re-evalutation: 12/20/17 02:29 Presentation of syncope of unclear etiology although appears likely related to orthostasis as the patient was lying in bed watching football, stood up abruptly and then became lightheaded followed by syncope. The patient does have bradycardia although review of prior visits shows that he consistently has bradycardia. He does take a beta-sergey atenolol which I have instructed him to stop. Patient normotensive, alert, without focal neurologic deficits at time of arrival. Denies syncope was during exertion. No preceding symptoms of palpitations, chest pain, or shortness of breath. Patient asymptomatic at time of arrival. EKG is without evidence of HCOM, right heart strain, ST changes to suggest ischemia, prolong QTc, delta wave, epsilon wave, or Brugada syndrome. Patient denies any family history of sudden cardiac , personal history of of structural heart disease. Patient denies any symptoms to suggest an acute PE , MT, TAD, SAH, seizure, or acute GI bleed as the etiology of their syncope today. On exam, no murmurs to suggest critical aortic stenosis as possible etiology. Based on overall clinical history, exam findings, vitals, and patient s appearance, I feel it is safe for patient to be discharged home at this time with close outpatient follow-up and strict return precautions. Patient is in agreement with this plan, has verbalized indications for return to ED, and questions have been answered. - Vital Signs Vital signs: Temp Pulse Resp BP Pulse Ox 97.9 F 51 L 14 139/67 H 100 12/19/17 21:44 12/19/17 21:44 12/20/17 02:31 12/20/17 02:31 12/20/17 02:31 - Laboratory Result Diagrams: 12/19/17 23:49 12/19/17 23:49 Laboratory results interpreted by me: 12/19/17 23:49 Est GFR (Non-Af Amer) 58 L - EKG Interpretation by Me Additional EKG results interpreted by me: 12/20/17 02:29 Sinus rhythm. Rate 52. No ST elevations or depressions. Unchanged from prior EKG. Discharge - Discharge Clinical Impression: Bradycardia Syncope Qualifiers: Syncope type: unspecified Qualified Code(s): R55 - Syncope and collapse Condition: Good Disposition: HOME, SELF-CARE Additional Instructions: You were seen today after an episode of passing out. Your EKG here is normal. At this time, we do not feel that your episode of passing out was from any life- threatening cause. Please drink plenty of fluids over the next several days. Return to emergency department if you have any further episodes of syncope, headache, weakness, numbness, chest pain, or shortness of breath. Please follow up closely with your primary care physician. Medication adjustments: Stop atenolol Referrals: APRIL CRUZ MD [Primary Care Provider] - Follow up tomorrow
[2017-12-20 02:33] VITALS: BP 139/67
--- NOTE | 2017-12-20 07:58 | EKG REPORT ---
SEVERITY:- ABNORMAL ECG - SINUS RHYTHM ANTERIOR INFARCT, AGE INDETERMINATE NONSPECIFIC T ABNORMALITIES, INFERIOR LEADS : Confirmed by: Dora Phoenix 20-Dec-2017 07:57:07
== END 2017-12-20 03:00 | disposition home or self-care (01) ==
LOC: ER 21:37
DX: R55 Syncope and collapse (principal); R00.1 Bradycardia, unspecified; E11.9 Type 2 diabetes mellitus without complications; J45.909 Unspecified asthma, uncomplicated; I10 Essential (primary) hypertension; Z79.899 Other long term (current) drug therapy
CPT/HCPCS: 36415; 80053; 82550; 82553; 84484; 85025; 93005; 93010; 99284

== ENCOUNTER 2018-06-19 20:15 | Emergency (ER) | payer OTHER, MEDICARE ==
[2018-06-19 22:35] LABS: ABSOLUTE LYMPHOCYTES (AUTO) 0.4 10^3/uL (0.5-4.7); ABSOLUTE MONOCYTES (AUTO) 0.5 10^3/uL (0.1-1.4); ABSOLUTE NEUT (AUTO) 3.9 10^3/uL (1.7-8.2); BASOPHILS % (AUTO) 0.3 % (0-2); EOSINOPHILS % (AUTO) 0.5 % (0-6); HEMATOCRIT 41.6 % (37.9-51.0); HEMOGLOBIN 14.6 g/dL (13.5-17.0); LYMPHOCYTES % (AUTO) 7.9 % (13-45); MEAN CORPUSCULAR HEMOGLOBIN 34.1 pg (27.0-33.4); MEAN CORPUSCULAR VOLUME 97 fl (80-97); MONOCYTES % (AUTO) 10.1 % (3-13); PLATELET COUNT 167 10^3/uL (150-450); RED BLOOD COUNT 4.28 10^6/uL (4.35-5.55); RED CELL DISTRIBUTION WIDTH 13.1 % (11.5-14.0); SEGMENTED NEUTROPHILS % (AUTO) 81.2 % (42-78); TOTAL CELLS COUNTED % (AUTO) 100 %; WHITE BLOOD COUNT 4.8 10^3/uL (4.0-10.5)
[2018-06-19 22:46] LABS: APPEARANCE,URINE CLEAR; BILIRUBIN,URINE NEGATIVE (NEGATIVE); COLOR,URINE YELLOW; GLUCOSE, URINE NEGATIVE (NEGATIVE); KETONES,URINE NEGATIVE (NEGATIVE); LEUKOCYTE ESTERASE,URINE NEGATIVE (NEGATIVE); NITRITE,URINE NEGATIVE (NEGATIVE); PROTEIN,URINE NEGATIVE (NEGATIVE); URINE SPECIFIC GRAVITY 1.019
[2018-06-19 22:47] LABS: ANION GAP 9 (5-19); BLOOD UREA NITROGEN 9 mg/dL (7-20); CALCIUM 9.5 mg/dL (8.4-10.2); CARBON DIOXIDE 25 mmol/L (22-30); CHLORIDE 103 mmol/L (98-107); GLUCOSE 89 mg/dL (75-110)
--- NOTE | 2018-06-19 23:39 | ER Document Report ---
ED General - General Chief Complaint: Dizziness Stated Complaint: WEAKNESS,DIZZYNESS Time Seen by Provider: 06/19/18 21:40 Primary Care Provider: APRIL CRUZ MD [Primary Care Provider] - Follow up as needed Notes: Patient is a 73-year-old male with a past medical history of paroxysmal atrial fibrillation, hypertension, presents complaining of an episode of coughing during which he became lightheaded or dizzy. States that he felt he might pass out during this episode. States that this episode of coughing started spontaneously and has since resolved. States that this time he feels fine, would like to go home. States that when symptoms were present they were severe, constant. Nothing seemed to improve or worsen when present. They did resolve spontaneously. Denies a history of similar symptoms in the past. Has not seen his general doctor regarding today's concerns. He specifically denies any chest pain, palpitations or shortness of breath currently or during this episode. TRAVEL OUTSIDE OF THE [place] IN LAST 30 DAYS: No - Related Data Allergies/Adverse Reactions: No Known Allergies Allergy (Verified 12/20/17 02:34) Past Medical History - General Information source: Patient - Social History Smoking Status: Never Smoker Frequency of alcohol use: None Drug Abuse: None Lives with: Family Family History: Reviewed & Not Pertinent Patient has suicidal ideation: No Patient has homicidal ideation: No - Past Medical History Cardiac Medical History: Reports: Hx Hypercholesterolemia, Hx Hypertension Pulmonary Medical History: Reports: Hx Asthma Endocrine Medical History: Reports: Hx Diabetes Mellitus Type 2 Renal/ Medical History: Denies: Hx Peritoneal Dialysis GI Medical History: Reports: Hx Gastroesophageal Reflux Disease Past Surgical History: Reports: Hx Orthopedic Surgery - rt hand reconstruction - Immunizations Hx Diphtheria, Pertussis, Tetanus Vaccination: Yes - 2009 Review of Systems - Review of Systems Notes: Constitutional: Negative for fever. HENT: Negative for sore throat. Eyes: Negative for visual changes. Cardiovascular: Negative for chest pain. Positive lightheadedness Respiratory: Negative for shortness of breath. Positive coughing Gastrointestinal: Negative for abdominal pain, vomiting or diarrhea. Genitourinary: Negative for dysuria. Musculoskeletal: Negative for back pain. Skin: Negative for rash. Neurological: Negative for headaches, weakness or numbness. 10 point ROS negative except as marked above and in HPI. Physical Exam - Vital signs Vitals: Temp Pulse Resp BP Pulse Ox 98.7 F 96 14 171/68 H 96 06/19/18 20:24 06/19/18 20:24 06/19/18 20:24 06/19/18 20:24 06/19/18 20:24 Interpretation: Hypertensive Notes: PHYSICAL EXAMINATION: GENERAL: Well-appearing, well-nourished and in no acute distress. HEAD: Atraumatic, normocephalic. EYES: Pupils equal round and reactive to light, extraocular movements intact, sclera anicteric, conjunctiva are normal. ENT: nares patent, oropharynx clear without exudates. Moist mucous membranes. NECK: Normal range of motion, supple without lymphadenopathy LUNGS: Breath sounds clear to auscultation bilaterally and equal. No wheezes rales or rhonchi. HEART: Irregular regular rate and rhythm without murmurs ABDOMEN: Soft, nontender, normoactive bowel sounds. No guarding, no rebound. No masses appreciated. EXTREMITIES: Normal range of motion, no pitting or edema. No cyanosis. NEUROLOGICAL: No focal neurological deficits. Moves all extremities spontaneously and on command. PSYCH: Normal mood, normal affect. SKIN: Warm, Dry, normal turgor, no rashes or lesions noted. Course - Re-evaluation Re-evalutation: 06/19/18 23:37 Patient presents with an episode of dizziness and/or lightheadedness after a vigorous episode of coughing at home. States that his symptoms have not resolved, feels fine and would like to go home. Denies any chest pain or shortness of breath. Patient's EKG does show atrial fibrillation of volume in the room the patient is going in and out of A. fib. The patient initially denies a history of this but his daughter the bedside states that indeed he does have a history of atrial fibrillation and is actually having a pacemaker placed for this issue tomorrow. Patient denies any palpitations. Laboratories unremarkable including troponin. Chest x-ray clear. Dizziness and/or lightheadedness likely vagal in origin given that patient states this occurred during a very vigorous episode of coughing "that I just could not kick". At this time will discharge with return precautions and follow-up recommendations. Verbal discharge instructions given a the bedside and opportunity for questions given. Medication warnings reviewed. Patient is in agreement with this plan and has verbalized understanding of return precautions and the need for primary care follow-up in the next 24-72 hours. - Vital Signs Vital signs: Temp Pulse Resp BP Pulse Ox 98.7 F 82 16 145/80 H 97 06/19/18 20:24 06/20/18 01:36 06/20/18 01:36 06/20/18 01:36 06/20/18 01:36 - Laboratory Result Diagrams: 06/19/18 22:05 06/19/18 22:05 Laboratory results interpreted by me: 06/19/18 06/19/18 22:05 22:05 RBC 4.28 L MCH 34.1 H Seg Neutrophils % 81.2 H Lymphocytes % 7.9 L Absolute Lymphocytes 0.4 L Urine Urobilinogen 2.0 H - Diagnostic Test Radiology reviewed: Image reviewed, Reports reviewed Radiology results interpreted by me: 06/20/18 04:32 Chest x-ray: No acute infiltrate or pneumothorax - EKG Interpretation by Me Additional EKG results interpreted by me: 06/19/18 23:38 Atrial fibrillation, rate 100, no ST elevations or depressions. T wave inversions in the lateral leads. Previous EKG did demonstrate these T wave inversions but was normal sinus rhythm. Discharge - Discharge Clinical Impression: Dizziness, Cough Afib Qualifiers: Atrial fibrillation type: unspecified Qualified Code(s): I48.91 - Unspecified atrial fibrillation Condition: Good Disposition: HOME, SELF-CARE Additional Instructions: Your labs, chest x-ray are reassuring today. You do appear to have intermittent atrial fibrillation. Please follow-up with your primary doctor and her doctor regarding today's concerns. Return if you develop chest pain, pass out, persistent vomiting or any other symptoms that are worrisome to you. Referrals: APRIL CRUZ MD [Primary Care Provider] - Follow up as needed
[2018-06-20 01:03] VITALS: BP 145/80
--- NOTE | 2018-06-20 01:18 | RADIOLOGY REPORT (SQ) ---
CLINICAL HISTORY: cough COMPARISON: June 16, 2016. TECHNIQUE: XR CHEST 1 VIEW 06/20/2018 12:45 AM CDT FINDINGS: Cardiac silhouette is normal in size. Lungs are clear without consolidation, atelectasis, mass or edema. There is no pleural effusion. There is no pneumothorax. There are no acute osseous findings. IMPRESSION: Clear lungs.
--- NOTE | 2018-06-20 07:42 | EKG REPORT ---
SEVERITY:- ABNORMAL ECG - ATRIAL FIBRILLATION ABNORMAL T, CONSIDER ISCHEMIA, DIFFUSE LEADS : Confirmed by: Dudley Silver MD 20-Jun-2018 07:39:55
== END 2018-06-20 01:45 | disposition home or self-care (01) ==
LOC: ER 20:15
DX: R42 Dizziness and giddiness (principal); R05 Cough; I48.0 Paroxysmal atrial fibrillation; I10 Essential (primary) hypertension; E11.9 Type 2 diabetes mellitus without complications; J45.909 Unspecified asthma, uncomplicated
CPT/HCPCS: 36415; 71045; 80048; 81001; 84484; 85025; 93005; 93010; 99284

== ENCOUNTER 2018-11-09 12:28 | Emergency (ER) | payer OTHER, MEDICARE ==
[2018-11-09] MEDS ORDERED: ACETAMINOPHEN 325 MG TABLET PO ONE (14:22)
[2018-11-09] MEDS ORDERED: NORMAL SALINE 1000 ML 1,000 ML IV ONE (14:22)
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
[2018-11-09 14:36] LABS: HEMATOCRIT 44.7 % (37.9-51.0); HEMOGLOBIN 15.1 g/dL (13.5-17.0); MEAN CORPUSCULAR HEMOGLOBIN 32.7 pg (27.0-33.4); MEAN CORPUSCULAR HGB CONC 33.7 g/dL (32.0-36.0); MEAN CORPUSCULAR VOLUME 97 fl (80-97); PLATELET COUNT 168 10^3/uL (150-450); RED BLOOD COUNT 4.61 10^6/uL (4.35-5.55); RED CELL DISTRIBUTION WIDTH 13.2 % (11.5-14.0); WHITE BLOOD COUNT 4.6 10^3/uL (4.0-10.5)
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
[2018-11-09 14:58] LABS: ANION GAP 11 (5-19); BLOOD UREA NITROGEN 10 mg/dL (7-20); CARBON DIOXIDE 30 mmol/L (22-30); CHLORIDE 97 mmol/L (98-107); GLUCOSE 132 mg/dL (75-110)
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
[2018-11-09] MEDS ORDERED: OXYCODONE-ACETAMINOPHEN 5-325 MG TABLET PO ONE (17:05)
[2018-11-09] MEDS ORDERED: OXYCODONE-ACETAMINOPHEN 5-325 MG TABLET ONE (17:15)
[2018-11-09 17:28] VITALS: BP 171/75
--- NOTE | 2018-11-09 17:36 | EKG REPORT ---
SEVERITY:- ABNORMAL ECG - SINUS RHYTHM FIRST DEGREE AV BLOCK LEFT ATRIAL ABNORMALITY CONSIDER ANTEROSEPTAL INFARCT ABNORMAL T, CONSIDER ISCHEMIA, ANT-LAT LEADS : Confirmed by: Deb Law MD 09-Nov-2018 17:36:03
== END 2018-11-09 17:28 | disposition home or self-care (01) ==
LOC: ER 12:28
DX: M54.2 Cervicalgia (principal); S50.02XA Contusion of left elbow, initial encounter; M25.512 Pain in left shoulder; M54.9 Dorsalgia, unspecified; V43.52XA Car driver injured in collision with other type car in traffic accident, initial encounter; W22.11XA Striking against or struck by driver side automobile airbag, initial encounter; I44.0 Atrioventricular block, first degree; E11.9 Type 2 diabetes mellitus without complications; J45.909 Unspecified asthma, uncomplicated; I10 Essential (primary) hypertension; E78.5 Hyperlipidemia, unspecified; E78.00 Pure hypercholesterolemia, unspecified; Z79.899 Other long term (current) drug therapy; Z79.02 Long term (current) use of antithrombotics/antiplatelets; Z95.0 Presence of cardiac pacemaker; Z87.891 Personal history of nicotine dependence
CPT/HCPCS: 93005; 99284; 96360; 36415; 85027; 80048; 73080; 70450; 71260; 72125; 74177; 93010; J7030

== ENCOUNTER 2019-03-05 12:47 | Emergency (ER) | payer OTHER, MEDICARE ==
--- NOTE | 2019-03-05 13:22 | ER Document Report ---
ED Medical Screen (RME) - General Chief Complaint: Chest Pain Stated Complaint: CHEST PAIN/DIZZY Time Seen by Provider: 03/05/19 13:13 Primary Care Provider: APRIL CRUZ MD [Primary Care Provider] - Follow up as needed TRAVEL OUTSIDE OF THE [place] IN LAST 30 DAYS: No - HPI Notes: 03/05/19 13:20 74 year old male to the ED wtih C/O chest pain and syncope. States that yesterday he was watching TV when he began to feel chest pain that he qualifies as "chest tightness". States that he got up to use the restroom and after using it, became acutely lightheaded and passed out. States that he continues to be lightheaded today. No further episodes of chest pain. He states that he has a pacemaker that was placed in [place] about 6-7 months ago for low heart rate. Never had a AMI before. Denies recent travel. Denies leg pain or leg swelling. Non smoker. I have performed a medical screening exam on the patient and determined she will need further management by mainside provider. I have placed initial orders to help expedite her care. - Related Data Allergies/Adverse Reactions: No Known Allergies Allergy (Verified 03/05/19 13:13) Past Medical History - Past Medical History Cardiac Medical History: Reports: Hx Hypercholesterolemia, Hx Hypertension Pulmonary Medical History: Reports: Hx Asthma Endocrine Medical History: Reports: Hx Diabetes Mellitus Type 2 Renal/ Medical History: Denies: Hx Peritoneal Dialysis GI Medical History: Reports: Hx Gastroesophageal Reflux Disease Past Surgical History: Reports: Hx Orthopedic Surgery - rt hand reconstruction - Immunizations Hx Diphtheria, Pertussis, Tetanus Vaccination: Yes - 2009 Physical Exam - Vital signs Vitals: Temp Pulse Resp BP Pulse Ox 98.3 F 61 18 116/60 95 03/05/19 13:08 03/05/19 13:08 03/05/19 13:08 03/05/19 13:08 03/05/19 13:08 Course - Vital Signs Vital signs: Temp Pulse Resp BP Pulse Ox 98.3 F 61 18 116/60 95 03/05/19 13:13 03/05/19 13:13 03/05/19 13:13 03/05/19 13:13 03/05/19 13:13 Doctor's Discharge - Discharge Referrals: APRIL CRUZ MD [Primary Care Provider] - Follow up as needed
[2019-03-05 13:50] LABS: ABSOLUTE EOSINOPHILS # (AUTO) 0.1 10^3/uL (0.0-0.6); ABSOLUTE LYMPHOCYTES (AUTO) 0.8 10^3/uL (0.5-4.7); ABSOLUTE MONOCYTES (AUTO) 0.3 10^3/uL (0.1-1.4); ABSOLUTE NEUT (AUTO) 2.5 10^3/uL (1.7-8.2); BASOPHILS % (AUTO) 0.6 % (0-2); EOSINOPHILS % (AUTO) 1.8 % (0-6); HEMATOCRIT 41.3 % (37.9-51.0); HEMOGLOBIN 14.4 g/dL (13.5-17.0); LYMPHOCYTES % (AUTO) 22.2 % (13-45); MEAN CORPUSCULAR HEMOGLOBIN 33.8 pg (27.0-33.4); MEAN CORPUSCULAR HGB CONC 34.8 g/dL (32.0-36.0); MEAN CORPUSCULAR VOLUME 97 fl (80-97); MONOCYTES % (AUTO) 8.7 % (3-13); PLATELET COUNT 196 10^3/uL (150-450); RED BLOOD COUNT 4.25 10^6/uL (4.35-5.55); RED CELL DISTRIBUTION WIDTH 12.6 % (11.5-14.0); SEGMENTED NEUTROPHILS % (AUTO) 66.7 % (42-78); TOTAL CELLS COUNTED % (AUTO) 100 %; WHITE BLOOD COUNT 3.7 10^3/uL (4.0-10.5)
[2019-03-05 13:51] LABS: APPEARANCE,URINE CLEAR; BILIRUBIN,URINE NEGATIVE (NEGATIVE); COLOR,URINE YELLOW; GLUCOSE, URINE NEGATIVE (NEGATIVE); KETONES,URINE NEGATIVE (NEGATIVE); LEUKOCYTE ESTERASE,URINE NEGATIVE (NEGATIVE); NITRITE,URINE NEGATIVE (NEGATIVE); PROTEIN,URINE NEGATIVE (NEGATIVE); URINE SPECIFIC GRAVITY 1.013; UROBILINOGEN,URINE NEGATIVE mg/dL (<2.0)
[2019-03-05 14:01] LABS: ALBUMIN 4.4 g/dL (3.5-5.0); ALKALINE PHOSPHATASE 61 U/L (38-126); ANION GAP 11 (5-19); ASPARTATE AMINO TRANSFERASE 18 U/L (17-59); BILIRUBIN,DIRECT 0.1 mg/dL (0.0-0.4); BILIRUBIN,TOTAL 1.1 mg/dL (0.2-1.3); BLOOD UREA NITROGEN 11 mg/dL (7-20); CALCIUM 9.6 mg/dL (8.4-10.2); CARBON DIOXIDE 30 mmol/L (22-30); CHLORIDE 97 mmol/L (98-107); GLUCOSE 106 mg/dL (75-110); POTASSIUM 4.1 mmol/L (3.6-5.0); TOTAL PROTEIN 7.5 g/dL (6.3-8.2)
--- NOTE | 2019-03-05 14:08 | RADIOLOGY REPORT (SQ) ---
EXAM DESCRIPTION: CHEST 2 VIEWS COMPLETED DATE/TIME: 03/05/2019 1:42 pm REASON FOR STUDY: chest pain, syncope COMPARISON: 06/20/2018. TECHNIQUE: Frontal and lateral radiographic views of the chest acquired. NUMBER OF VIEWS: Two view. LIMITATIONS: None. FINDINGS: LUNGS AND PLEURA: Hyperinflated with areas of apical scarring. Minimal blunting right cos tophrenic angle may also represent scar, fairly chronic. No developing nodules or infiltrates. MEDIASTINUM AND HILAR STRUCTURES: No masses or contour abnormalities. HEART AND VASCULAR STRUCTURES: Heart normal size. No evidence for failure. BONES: No acute findings. HARDWARE: Right pacer. OTHER: No other significant finding. IMPRESSION: COPD. TECHNICAL DOCUMENTATION: JOB ID: [id number] [email or web address]- All Rights Reserved Reading location - IP/workstation name: [email or web address]
[2019-03-05 14:20] LABS: NT PRO BNP 181 pg/mL (<125)
[2019-03-05 14:23] LABS: TROPONIN I < 0.012 ng/mL
--- NOTE | 2019-03-05 14:32 | ER Document Report ---
Entered by AMARILYS ASH SCRIBE 03/05/19 1352 Acting as scribe for:DONOVAN MORRISON IV, MD ED General - General Chief Complaint: Chest Pain Stated Complaint: CHEST PAIN/DIZZY Time Seen by Provider: 03/05/19 13:13 Primary Care Provider: APRIL CRUZ MD [Primary Care Provider] - Follow up as needed Notes: This 74-year-old male patient presents to the emergency department today with complaints of chest pain which began yesterday. Patient states he was sitting down watching TV when the chest pain began. Patient describes the pain as a "tightness". Patient states shortly after the pain began he stood up to go to the bathroom, felt lightheaded, and then a syncopal event. Patient was not seen yesterday for these symptoms. Brother at bedside provides additional history, including that the patient has had these exact symptoms probably 3 or 4 times over the last 3 to 4 months. [facility] the brother. Brother states that when the patient came to his house today to tell him about what happened last night he knew that "he needed to be seen" because he "never likes to go to the doctor". Brother also mentions that the patient has a very large bag completely filled with all his medications and thinks that the patient could possibly be "mixing u p or not taking all the right stuff". 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 TRAVEL OUTSIDE OF THE [place] IN LAST 30 DAYS: No - Related Data Allergies/Adverse Reactions: No Known Allergies Allergy (Verified 03/05/19 13:13) Past Medical History - General Information source: Patient - Social History Smoking Status: Never Smoker Frequency of alcohol use: None Drug Abuse: None Lives with: Family Family History: Reviewed & Not Pertinent Patient has suicidal ideation: No Patient has homicidal ideation: No - Past Medical History Cardiac Medical History: Reports: Hx Hypercholesterolemia, Hx Hypertension Pulmonary Medical History: Reports: Hx Asthma Endocrine Medical History: Reports: Hx Diabetes Mellitus Type 2 GI Medical History: Reports: Hx Gastroesophageal Reflux Disease Past Surgical History: Reports: Hx Orthopedic Surgery - rt hand reconstruction - Immunizations Hx Diphtheria, Pertussis, Tetanus Vaccination: Yes - 2009 Review of Systems - Review of Systems Constitutional: No symptoms reported EENT: No symptoms reported Cardiovascular: See HPI, Chest pain, Syncope, Lightheaded Respiratory: No symptoms reported Gastrointestinal: No symptoms reported Genitourinary: No symptoms reported Male Genitourinary: No symptoms reported Musculoskeletal: No symptoms reported Skin: No symptoms reported Hematologic/Lymphatic: No symptoms reported Neurological/Psychological: No symptoms reported -: Yes All other systems reviewed and negative Physical Exam - Vital signs Vitals: Temp Pulse Resp BP Pulse Ox 98.3 F 61 18 116/60 95 03/05/19 13:08 03/05/19 13:08 03/05/19 13:08 03/05/19 13:08 03/05/19 13:08 - Notes Notes: Physical Exam: General: Alert, appears well. HEENT: Normocephalic. Atraumatic. PERRL. Extraocular movements intact. Oropharynx clear. Neck: Supple. Non-tender. Respiratory: No respiratory distress. Clear and equal breath sounds bilaterally. Cardiovascular: Regular rate and rhythm. Abdominal: Normal Inspection. Non-tender. No distension. Normal Bowel Sounds. Back: No gross abnormalities. Extremities: Moves all four extremities. Upper extremities: Normal inspection. Normal ROM. Lower extremities: Normal inspection. No edema. Normal ROM. Neurological: Normal cognition. AAOx4. Normal speech. Psychological: Normal affect. Normal Mood. Skin: Warm. Dry. Normal color. Course - Re-evaluation Re-evalutation: 03/05/19 16:29 Results of her ED MSE discussed with patient and patient's brother. This MD offered the patient a peripheral IV and IV fluids to treat his orthostatic hypotension. Patient stated he would just as soon go home and drink some water. All questions were answered prior to discharge. Emergency signs and symptoms, reasons to return to the emergency department discussed with patient and patient's brother. - Vital Signs Vital signs: Temp Pulse Resp BP Pulse Ox 98.3 F 60 14 151/80 H 100 03/05/19 13:13 03/05/19 14:58 03/05/19 16:01 03/05/19 16:01 03/05/19 16:01 - Laboratory Result Diagrams: 03/05/19 13:30 03/05/19 13:30 Laboratory results interpreted by me: 03/05/19 03/05/19 03/05/19 13:30 13:30 13:30 WBC 3.7 L RBC 4.25 L MCH 33.8 H Chloride 97 L Creatinine 1.29 H Est GFR (MDRD) Non-Af 54 L NT-Pro-B Natriuret Pep 181 H Urine Blood 03/05/19 13:30 WBC RBC MCH Chloride Creatinine Est GFR (MDRD) Non-Af NT-Pro-B Natriuret Pep Urine Blood SMALL H - EKG Interpretation by Me Additional EKG results interpreted by me: 03/05/19 16:31 EKG performed on 03/05/2019 at 1259 hrs. was interpreted by this MD. Findings: Sinus rhythm with first-degree AV block, heart rate 60, normal axis, P waves appear to proceed QRS complexes. QRS complexes appear narrow. There are no patterns of ST elevation or depression suggestive of acute myocardial ischemia or infarction. Impression sinus rhythm with first-degree AV block and nonspecific ST segments. Discharge - Discharge Clinical Impression: Orthostatic hypotension Condition: Good Disposition: HOME, SELF-CARE Additional Instructions: Return to the Emergency Department without delay if any worse. HOME CARE INSTRUCTIONS & INFORMATION: Thank you for choosing us for your medical needs. We hope you're satisfied with the care you received. After you leave, you must properly care for your problem and, at the same time, observe its progress. Any condition can change. Some illnesses can change rapidly over hours or days. If your condition worsens, return to the Emergency Department or see your physician promptly. ABOUT YOUR X-RAYS AND EKG'S: If you had an EKG or X-rays taken, they have been read by the Emergency Physician. The X-rays and EKG's will also be read by a Radiologist or Plant Packer within 24 hours. If discrepancies are noted, you will be notified by telephone. Please be certain the ED has a correct telephone number & address where you can be reached. Also, realize that some fractures or abnormalities do not show up on initial X-rays. If your symptoms continue, see your physician. ABOUT YOUR LABORATORY TEST: If you had laboratory tests, the results have been reviewed by the Emergency Physician. Some test results (for example cultures) may not be available for several days. You will be contacted if any test result shows you need additional treatment. Please be certain the ED has a correct telephone number and address where you can be reached. ABOUT YOUR MEDICATIONS: You will receive instructions on how to take your med icine on the prescription label you receive. Additional information may be provided by the Pharmacy. If you have questions afterwards, call the ED for clarification or further instructions. Some prescribed medications may cause drowsiness. Do not perform tasks such as driving a car or operating machinery without consulting your Pharmacist. If you feel you need a refill of pain medication, your condition will need re-evaluation. Please do not call for a refill of any medication. ABOUT YOUR SIGNATURE: Signature of this document acknowledges to followin. Understanding that you received emergency treatment and that you may be released before al medical problems are known or treated. Please be certain the ED has a correct phone number & address where you can be reached. 2. Acknowledgement that you will arrange for follow-up care as recommended. 3. Authorization for the Emergency Physician to provide information to your follow-up Physician in order to maximize your care. AT ANY TIME, IF YOUR SYMPTOMS CHANGE SIGNIFICANTLY OR WORSEN OR YOU DEVELOP NEW SYMPTOMS, RETURN TO THE EMERGENCY DEPARTMENT IMMEDIATELY FOR RE-EVALUATION. OUR GOAL IS TO PROVIDE EXCELLENT MEDICAL CARE! WE HOPE THAT WE HAVE MET YOUR EXPECTATIONS DURING YOUR EMERGENCY DEPARTMENT VISIT AND THAT YOU FEEL YOU HAVE RECEIVED EXCELLENT CARE! Referrals: APRIL CRUZ MD [Primary Care Provider] - Follow up tomorrow I personally performed the services described in the documentation, reviewed and edited the documentation which was dictated to the scribe in my presence, and it accurately records my words and actions.
--- NOTE | 2019-03-05 15:48 | EKG REPORT ---
SEVERITY:- ABNORMAL ECG - SINUS RHYTHM FIRST DEGREE AV BLOCK PROBABLE ANTERIOR INFARCT, OLD NONSPECIFIC T ABNORMALITIES, INFERIOR LEADS : Confirmed by: Dudley Silver MD 05-Mar-2019 15:47:47
[2019-03-05] MEDS ORDERED: NORMAL SALINE 500 ML IV ONE (16:19)
[2019-03-05 17:00] VITALS: BP 127/68
== END 2019-03-05 17:01 | disposition home or self-care (01) ==
LOC: ER 12:47
DX: I95.1 Orthostatic hypotension (principal); R07.9 Chest pain, unspecified; R42 Dizziness and giddiness; I10 Essential (primary) hypertension; J45.909 Unspecified asthma, uncomplicated; E11.9 Type 2 diabetes mellitus without complications
CPT/HCPCS: 36415; 71046; 80053; 81001; 83880; 84484; 85025; 93005; 93010; 99284